=== PATIENT | female | born 1960 | race Caucasian/White ===

== ENCOUNTER → 2016-09-11 | Outpatient (CLI) | payer OTHER ==
[~2016-09-11] MED LIST: IBUPROFEN 200 MG TAB PO ONE
== END ==
LOC: FIMAGING 09:58
PROVIDERS: ATTEND Registered Nurse Maternal Newborn
DX: N95.0 Postmenopausal bleeding (principal); N84.0 Polyp of corpus uteri; N84.1 Polyp of cervix uteri

== ENCOUNTER 2016-11-14 06:45 | Day surgery (SDC) | payer OTHER ==
[2016-11-14] MEDS ORDERED: LIDOCAINE 1% 5 ML SDV ID PRN (07:25)
[2016-11-14] MEDS ORDERED: LR 1,000 ML IV ONE (07:25)
[2016-11-14] MEDS ORDERED: fentaNYL 100 MCG/2 ML INJ ONE ×2 (07:40→09:29)
[2016-11-14] MEDS ORDERED: PROPOFOL 200 MG/20 ML VIAL ONE ×2 (07:40→08:34)
[2016-11-14] MEDS ORDERED: KETOROLAC 30 MG/1 ML SDV ONE (08:54)
[2016-11-14] MEDS ORDERED: LIDOCAINE 2% 5 ML SDV ONE (08:55)
[2016-11-14] MEDS ORDERED: DEXAMETHASONE 4 MG/ML VIAL ONE (08:55)
[2016-11-14] MEDS ORDERED: ONDANSETRON 4 MG/2 ML VIAL ONE (08:55)
--- NOTE | 2016-11-14 10:00 | GOP ---
[f rep st] OPERATIVE REPORT DATE OF OPERATION: 11/14/2016 SURGEON: Hilda Bernstein MD ANESTHESIA: General with LMA. ANESTHESIOLOGIST: Irving Mcgarry MD PREOPERATIVE DIAGNOSIS: 1. Endometrial polyps. 2. Dysfunctional uterine bleeding. POSTOPERATIVE DIAGNOSIS: 1. Endometrial polyps. 2. Dysfunctional uterine bleeding. PROCEDURE PERFORMED: Hysteroscopic polypectomy with NovaSure endometrial ablation. FINDINGS: 3-4 very distinct endometrial polyps arising both from the anterior and posterior floor o f the uterus, normal-appearing cervix, and normal tubal ostia. ESTIMATED BLOOD LOSS: Minimal. DESCRIPTION OF PROCEDURE: With informed consent signed, patient taken to the operating room, placed under general anesthesia, placed in a low dorsal lithotomy position, prepped and draped in the usua l sterile fashion. Bladder previously emptied. Tenaculum placed on the anterior lip of the cervix. Cervix dilated to 9-1/2 mm. Hysteroscope placed into the uterine cavity using normal saline as a filling medium. Findings as noted above. Hysteroscopic resection of polyps done until the endometr ium was clear. The hysteroscope was removed. Net fluid deficit was 70 cc. NovaSure endometrial ab lation device placed into the uterine cavity, and length was 5.5, width was 2.5. Integrity test pas sed. Burn time was 90 seconds. NovaSure removed. Hemostasis was noted. Patient placed in the sup ine position, awakened in the operating room, and taken to the recovery room in stable condition. S he tolerated the procedure well. INDICATIONS FOR PROCEDURE: Patient is a 56-year-old who has [facility] and [facility] and has had problematic bleeding throughout. She had an ultrasound sonohysterogram at [facility] 09/11/2016, which showed multiple endometrial polyps. Endometrial biopsy done on 0 10/31/2016 showed disrupted polyp. The patient desires definitive treatment. COMPLICATIONS: None. Copy requested to: Griselda Acharya MD /[id number]/MODL
== END 2016-11-14 11:12 | disposition home or self-care (01) ==
LOC: FSGY 06:45
PROVIDERS: ATTEND Obstetrics & Gynecology Gynecology
PROC: 0UB98ZX Excision of Uterus, Via Natural or Artificial Opening Endoscopic, Diagnostic (ICD-10-PCS; principal; 2016-11-14 08:15)
PROC: 0U5B7ZZ Destruction of Endometrium, Via Natural or Artificial Opening (ICD-10-PCS; principal; 2016-11-14 08:15)
DX: N84.0 Polyp of corpus uteri (principal); N93.8 Other specified abnormal uterine and vaginal bleeding
CPT/HCPCS: 58353; C1782; J1100; J1885; J2405; J2704; J3010